=== PATIENT | female | born 1965 | race Caucasian/White ===

== ENCOUNTER 2021-05-19 12:46 | Outpatient (CLI) | payer BC ==
--- NOTE | 2021-05-19 13:23 | XRAY Report ---
PROCEDURE: Ribs w/PA Chest RT INDICATIONS: RIGHT RIB PAIN TECHNIQUE: 3 views of the right ribs were acquired, along with a single view chest. COMPARISON: None. FINDINGS: SUPPORT DEVICES: None. LUNGS/PLEURA: No focal consolidation, pleural effusion or space-occupying pneumothorax. MEDIASTINUM: The cardiomediastinal silhouette is within normal limits. BONES/SOFT TISSUES: No acute, displaced rib fracture. No chest wall emphysema. IMPRESSION: 1.No acute abnormality. Reviewed by: Luis Hillman MD on 05/19/2021 1:21 PM PST Approved by: Luis Hillman MD on 05/19/2021 1:21 PM PST Station ID: [id number]
== END 2021-05-19 23:59 | disposition home or self-care (01) ==
LOC: DI.S 12:46
PROVIDERS: ATTEND Registered Nurse
DX: R07.81 Pleurodynia (principal)